=== PATIENT | female | born 1990 | race Caucasian/White ===

== ENCOUNTER → 2019-05-31 | Outpatient (CLI) | payer OTHER ==
--- NOTE | 2019-06-01 15:14 | RAD ---
EXAM: OBSTETRIC ULTRASOUND. HISTORY: anatomy survey. COMPARISON: None. FINDINGS: Sonographic evaluation of the uterus, fetus and maternal pelvis was performed. There is a single fetus in vertex presentation. heart rate is 169 bpm. Estimated gestational age based on measurements is 29 weeks 4 days. Biparietal diameter, head circumference, abdominal circumference and femur length are commensurate. Estimated weight is 1443 g. The placenta is posterior. There is no evidence of placenta previa. Amniotic fluid volume appears normal with amniotic fluid index 10.3 cm. The cervix is closed and measures 4.9 cm. Intracranial images demonstrate no hydrocephalus. Images of the kidneys reveal no hydronephrosis. The spine demonstrates no clear defects. The cord insertion appears normal. Nose/lip morphology appears normal. The heart is four-chamber on real-time scanning but not clearly demonstrated on these images. The extremities appear normal. The stomach and bladder are visualized. The maternal adnexa are obscured by positioning currently. IMPRESSION: 1. Single fetus in vertex presentation. heart rate 169 bpm. Estimated gestational age based on measurements 29 weeks 4 days. Electronically signed by: Sho Melo MD (06/01/2019 3:12 PM) [facility]
== END | disposition home or self-care (01) ==
LOC: US 15:26
PROVIDERS: ATTEND Obstetrics & Gynecology
DX: Z32.01 Encounter for pregnancy test, result positive (principal); Z3A.29 29 weeks gestation of pregnancy; Z87.59 Personal history of other complications of pregnancy, childbirth and the puerperium
CPT/HCPCS: 76805

== ENCOUNTER 2019-07-26 00:42 | Observation (INO) | payer OTHER ==
[2019-07-26] MEDS ORDERED: IV RINGERS,LACTATED 1000ML 1,000 ML IV PRN (01:00)
[2019-07-26 01:16] LABS: BILIRUBIN,URINE NEGATIVE (NEG); CLARITY,URINE CLOUDY; COLOR,URINE YELLOW; NITRITE,URINE NEGATIVE (NEG); PROTEIN,URINE NEGATIVE (NEG-TRACE); UROBILINOGEN,URINE 0.2 mg/dL (0.2 mg/dL)
[2019-07-26 01:19] LABS: BARBITURATES NEG (NEG); BENZODIAZEPINES NEG (NEG); CANNABINOIDS NEG (NEG); COCAINE NEG (NEG); METHADONE NEG (NEG); OPIATES NEG (NEG); PHENCYCLIDINE NEG (NEG)
[2019-07-26 01:21] LABS: SQUAMOUS EPITHELIAL CELL,UR MANY /LPF
[2019-07-26 01:22] LABS: BACTERIA,URINE MANY /HPF (0-FEW); RBC,URINE 0 /HPF (0-2)
[2019-07-26 01:23] LABS: AMORPHOUS SEDIMENT,UR PRESENT /HPF
[2019-07-26 01:24] LABS: AMPHETAMINE/METHAMPHETAMINE NEG (NEG)
== END 2019-07-26 02:10 | disposition home or self-care (01) ==
LOC: 3 SO LND 00:42
PROVIDERS: ADMIT Obstetrics & Gynecology; ATTEND Obstetrics & Gynecology
DX: O36.8130 Decreased fetal movements, third trimester, not applicable or unspecified (principal); Z3A.37 37 weeks gestation of pregnancy; Z98.891 History of uterine scar from previous surgery
CPT/HCPCS: 80307; 81001; 87086; G0378; G0379; 59025

== ENCOUNTER 2019-07-27 23:11 | Observation (INO) | payer OTHER ==
[2019-07-27 23:49] LABS: BILIRUBIN,URINE NEGATIVE (NEG); CLARITY,URINE CLEAR; COLOR,URINE YELLOW; NITRITE,URINE NEGATIVE (NEG); PH,URINE 6.5; PROTEIN,URINE NEGATIVE (NEG-TRACE); UROBILINOGEN,URINE 0.2 mg/dL (0.2 mg/dL)
[2019-07-28 00:19] LABS: BACTERIA,URINE MANY /HPF (0-FEW)
[2019-07-28 00:20] LABS: SQUAMOUS EPITHELIAL CELL,UR MOD /LPF
[2019-07-28] MEDS ORDERED: 0.9 % SODIUM CHLORIDE 10 ML DISP.SYRIN. IV PRN (01:30)
[2019-07-28] MEDS ORDERED: IV RINGERS,LACTATED 500ML 1,000 ML IV ONE (01:30)
[2019-07-28] MEDS ORDERED: TERBUTALINE 1 MG/ML VIAL. SQ PRN (01:30)
[2019-07-28] MEDS ORDERED: IV RINGERS,LACTATED 1000ML 1,000 ML IV SCH (01:30)
[2019-07-28 01:47] LABS: BASO # 0.1 x10^3/uL (0.0-0.2); BASO % 1 % (0-3); EOS # 0.1 x10^3/uL (0.0-0.7); EOS % 1 % (0-3); HEMOGLOBIN 11.3 g/dL (12.0-15.5); LYMPH # 2.6 x10^3/uL (1.0-4.8); LYMPH % 20 % (24-48); MEAN CORPUSCULAR HEMOGLOBIN 30 pg (25-35); MEAN CORPUSCULAR HGB CONC 33 g/dL (31-37); MEAN CORPUSCULAR VOLUME 91 fL (79-100); MONO # 0.8 x10^3/uL (0.0-1.1); MONO % 6 % (0-9); NEUT # 9.2 x10^3/uL (1.8-7.7); NEUT % 72 % (31-73); PLATELET COUNT 312 x10^3/uL (140-400); RED BLOOD COUNT 3.73 x10^6/uL (3.50-5.40); RED CELL DISTRIBUTION WIDTH 13.5 % (11.5-14.5); WHITE BLOOD COUNT 12.8 x10^3/uL (4.0-11.0)
[2019-07-28] MEDS ORDERED: fentaNYL PF VIAL 100 MCG/2 ML VIAL IV PRN (02:00)
[2019-07-28] MEDS ORDERED: hydrOXYzine 25 MG TABLET PO PRN (09:30)
== END 2019-07-28 12:20 | disposition home or self-care (01) ==
LOC: 3 SO LND 23:11
PROVIDERS: ADMIT Obstetrics & Gynecology; ATTEND Obstetrics & Gynecology
DX: Z34.83 Encounter for supervision of other normal pregnancy, third trimester (principal); Z3A.37 37 weeks gestation of pregnancy; Z98.891 History of uterine scar from previous surgery
CPT/HCPCS: 36415; 81001; 85025; 86592; 86850; 86900; 86901; 87086; 96374; G0378; G0379; J3010; J7120

== ENCOUNTER 2019-07-30 16:50 | Inpatient (IN) | payer OTHER ==
[~2019-07-30] VITALS: Ht 170.2 cm; Wt 85.7 kg
[2019-07-30] MEDS ORDERED: CITRIC ACID/SODIUM CITRATE 30 ML SOLUTION. PO ONE (17:30)
[2019-07-30] MEDS ORDERED: TERBUTALINE 1 MG/ML VIAL. SQ ONE (17:30)
[2019-07-30] MEDS ORDERED: IV RINGERS,LACTATED 1000ML 1,000 ML IV SCH (17:30)
[2019-07-30 17:38] LABS: HEMATOCRIT 33.1 % (36.0-47.0); RED BLOOD COUNT 3.68 x10^6/uL (3.50-5.40); RED CELL DISTRIBUTION WIDTH 13.8 % (11.5-14.5); WHITE BLOOD COUNT 11.1 x10^3/uL (4.0-11.0)
--- NOTE | 2019-07-30 18:57 | PDOC1 ---
OB - History Hx of Present Care: Good Care Ultrasounds: Normal mid trimester US Obstetrical Complications: None Medical Complications: None Past Family/Social History * Past Medical, Surgical, Family and Obstetric Histories reviewed from chart. Rubella: Immune RPR/VDRL: Negative GBS Status: Unknown HBsAG: Negative OB - Chief Complaint & HPI Date of Admission: Date of Admission: Jul 30, 2019 at 16:50 Chief Complaint/History : 3 Para: 2 EGA: 38 Reason for admission: active labor Indication for : desires repeat Admission Nurse Assessment Rev: Yes OB - Admission Exam Physical Exam Vitals: VS - Last 72 Hours, by Label Date Time Temp Pulse Resp B/P (MAP) Pulse Ox O2 Delivery O2 Flow Rate FiO2 07/30/19 17:33 87 143/85 HEENT: Normal Heart: Regular Rate Lungs: Clear Abdomen: Gravid, Non tender, Soft Extremities: Edema Reflexes: Normal Cervical Dilatation: 3cm Effacement: 75% Station: -3 Membranes: Intact Heart Rate: Normal Accelerations: Accelerations Present Decelerations: No decelerations Contractions on Admission: 6-10 Minutes Apart Intensity: Moderate Text A: 38 wks IUP Previous c/s Active labor P: Admit for repeat c/s. DIVINE KRISHNAMURTHY Jr, MD Jul 30, 2019 18:57
[2019-07-30] MEDS ORDERED: ONDANSETRON PF 4 MG/2 ML VIAL. IV PRN (19:00)
[2019-07-30] MEDS ORDERED: 0.9 % SODIUM CHLORIDE 10 ML DISP.SYRIN. IV PRN (19:00)
[2019-07-30] MEDS ORDERED: oxyCODONE/APAP 5/325 1 TAB TABLET PO PRN (19:00)
[2019-07-30] MEDS ORDERED: SIMETHICONE 80 MG TAB.CHEW PO PRN (19:00)
[2019-07-30] MEDS ORDERED: OXYTOCIN 30 UNIT/500 ML PREMIX 500 ML IV PRN (19:00)
[2019-07-30] MEDS ORDERED: MAG HYDROX/ALUMINUM HYD/SIMETH 30 ML ORAL.SUSP PO PRN (19:00)
[2019-07-30] MEDS ORDERED: DOCUSATE SODIUM 100 MG CAPSULE. PO PRN (19:00)
[2019-07-30] MEDS ORDERED: KETOROLAC 30 MG/ML VIAL. IV PRN (19:00)
[2019-07-30] MEDS ORDERED: ZOLPIDEM 5 MG TABLET. PO PRN (19:00)
[2019-07-30] MEDS ORDERED: diphenhydrAMINE ORAL ELIXIR 12.5 MG/5 ML ML PO PRN (19:00)
[2019-07-30] MEDS ORDERED: fentaNYL PF VIAL 100 MCG/2 ML VIAL ONE ×2 (20:10→20:12)
[2019-07-30] MEDS ORDERED: MORPHINE PF 10 MG/10 ML AMPUL. ONE (20:11)
[2019-07-30] MEDS ORDERED: OXYTOCIN 10 UNIT/ML VIAL. ONE ×2 (20:13)
[2019-07-30] MEDS ORDERED: ONDANSETRON PF 4 MG/2 ML VIAL. ONE (21:47)
[2019-07-30] MEDS ORDERED: METOCLOPRAMIDE HCL 10 MG/2 ML VIAL. ONE (21:47)
[2019-07-30] MEDS ORDERED: PHENYLEPHRINE in 0.9% NACL PF 1 MG/10 ML SYRINGE. IV ONE (21:47)
[2019-07-30] MEDS ORDERED: FAMOTIDINE 20 MG/2 ML VIAL ONE (21:47)
[2019-07-30] MEDS ORDERED: ceFAZolin 2GM PREMIX 2 GM/50 ML BAG IV ONE (22:00)
--- NOTE | 2019-07-30 22:06 | PDOC4 ---
OB Operative Note Date: Jul 30, 2019 PRE OP DIAGNOSIS: Previoujs C- section (active labor) POST OP DIAGNOSIS: Other (same) OPERATION PERFORMED: R [facility] Surgeon Dr. Uriostegui Anesthesia: Regional (Spinal) Blood Loss 600 ml Specimen placenta and OB Findings: Position (Vertex), Sex (Female), (8/9), Weight (8 Lb 2 oz) Complications none Additional Remarks pt. stable DIVINE URIOSTEGUI Jr, MD Jul 30, 2019 22:06
--- NOTE | 2019-07-30 22:50 | OP ---
DATE OF SURGERY: 07/30/2019 PREOPERATIVE DIAGNOSES: 1. A 38 weeks' intrauterine . 2. Previous section. 3. Active labor. POSTOPERATIVE DIAGNOSES: 1. A 38 weeks' intrauterine . 2. Previous section. 3. Active labor. PROCEDURE: Repeat low transverse section. SURGEON: Divine Uriostegui MD ANESTHESIA: Spinal. ESTIMATED BLOOD LOSS: 600 mL. COMPLICATIONS: None. FINDINGS: Viable female , Apgars 8 and 9, weight 8 pounds 2 ounces. Three-vessel cord placenta delivered manually intact. SUMMARY: A 28-year-old 3, para 2 at 38 weeks with a previous , presented in active labor. She was counseled on the risks, benefits and expectations of repeat section and voiced clear understanding to proceed. DESCRIPTION OF PROCEDURE: The patient was taken to surgery suite and placed in dorsal supine position. She was prepped with ChloraPrep and draped in sterile fashion. After adequate anesthesia, Pfannenstiel skin incision was made with a scalpel down to and through the fascia. The fascia was extended laterally using curved Ly scissors. The superior edge of the fascia was grasped with 2 Ary clamps and dissected free of the abdominal rectus muscle using blunt dissection along with Bovie cautery. The same process took place inferiorly. The abdominal rectus muscles were dissected bluntly at the midline. Peritoneum was grasped with 2 hemostats and entered sharply with Metzenbaum scissors. This incision was extended superiorly as well as inferiorly. The Charlie ring retractor was placed. A low transverse hysterotomy incision was made with scalpel down to the amniotic sac. The hysterotomy incision was extended laterally and superiorly digitally. Amniotomy was performed with Allis clamp, which elicited moderate amount of clear fluid. With the aid of fundal pressure, the 's head was delivered in a smooth atraumatic manner. With additional fundal pressure, the anterior shoulder was delivered followed by posterior shoulder and rest of female was delivered. was suctioned with a bulb syringe orally and nasally, umbilical cord was clamped twice and cut and viable female infant was handed to waiting nursing staff. Umbilical cord blood was then obtained. Three-vessel cord placenta was delivered manually intact. The uterus was then exteriorized and cleared of clot and debris with moist lap. Hysterotomy incision was reapproximated using #1 Vicryl suture in a running locked fashion. The uterus palpated firm. Fallopian tubes and ovaries appeared normal bilaterally. Posterior cul-de-sac was cleared of clot and debris with moist lap. The uterus was then returned to the abdomen. The pericolic gutters were cleared of clot and debris with a moist lap. Hysterotomy incision was reviewed and was hemostatic. The Charlie ring retractor was removed. Peritoneum was reapproximated using #1 Vicryl suture in running fashion. The abdominal rectus muscles were reapproximated using #1 Vicryl suture in an interrupted fashion. The fascia was reapproximated using Stratafix in a running fashion. The skin was reapproximated using 4-0 Vicryl suture in a subcuticular manner. The patient tolerated the procedure well and was taken to recovery room in stable condition. Sponge and needle count correct x 3. DIVINE URIOSTEGUI MD DR: CRYSTAL/lorri JOB#: [id number] / [id number]
[2019-07-31 01:53] VITALS: BP 100/64
[2019-07-31 04:00] VITALS: BP 114/56
[2019-07-31 05:30] VITALS: BP 106/51
[2019-07-31] MEDS: IV RINGERS,LACTATED 1000ML 1,000 ML IV SCH (05:45)
[2019-07-31 06:20] LABS: BASO % 0 % (0-3); EOS % 0 % (0-3); HEMOGLOBIN 9.4 g/dL (12.0-15.5); LYMPH # 2.4 x10^3/uL (1.0-4.8); LYMPH % 21 % (24-48); MEAN CORPUSCULAR HEMOGLOBIN 30 pg (25-35); MEAN CORPUSCULAR HGB CONC 32 g/dL (31-37); MEAN CORPUSCULAR VOLUME 91 fL (79-100); MONO # 0.7 x10^3/uL (0.0-1.1); MONO % 6 % (0-9); NEUT # 8.3 x10^3/uL (1.8-7.7); NEUT % 73 % (31-73); PLATELET COUNT 240 x10^3/uL (140-400); RED BLOOD COUNT 3.17 x10^6/uL (3.50-5.40); RED CELL DISTRIBUTION WIDTH 13.6 % (11.5-14.5); WHITE BLOOD COUNT 11.4 x10^3/uL (4.0-11.0)
[2019-07-31] MEDS: FERROUS SULFATE 325 MG TABLET. PO SCH ×2 (08:04→19:58)
[2019-07-31] MEDS: IBUPROFEN 400 MG TABLET. PO PRN ×2 (08:04→19:58)
--- NOTE | 2019-07-31 08:32 | PDOC ---
OB Progress Note Date of Service 07/31/19 Time of Evaluation 0830 Notes Pt. feeling well. No complaints. Pain controlled. Lab Laboratory Tests Test 07/30/19 17:30 07/31/19 04:40 White Blood Count 11.1 x10^3/uL (4.0-11.0) 11.4 x10^3/uL (4.0-11.0) Red Blood Count 3.68 x10^6/uL (3.50-5.40) 3.17 x10^6/uL (3.50-5.40) Hemoglobin 11.0 g/dL (12.0-15.5) 9.4 g/dL (12.0-15.5) Hematocrit 33.1 % (36.0-47.0) 29.0 % (36.0-47.0) Mean Corpuscular Volume 90 fL (79-100) 91 fL (79-100) Mean Corpuscular Hemoglobin 30 pg (25-35) 30 pg (25-35) Mean Corpuscular Hemoglobin Concent 33 g/dL (31-37) 32 g/dL (31-37) Red Cell Distribution Width 13.8 % (11.5-14.5) 13.6 % (11.5-14.5) Platelet Count 313 x10^3/uL (140-400) 240 x10^3/uL (140-400) Treponema pallidum Antibody Nonreactive (Nonreactive) Neutrophils (%) (Auto) 73 % (31-73) Lymphocytes (%) (Auto) 21 % (24-48) Monocytes (%) (Auto) 6 % (0-9) Eosinophils (%) (Auto) 0 % (0-3) Basophils (%) (Auto) 0 % (0-3) Neutrophils # (Auto) 8.3 x10^3/uL (1.8-7.7) Lymphocytes # (Auto) 2.4 x10^3/uL (1.0-4.8) Monocytes # (Auto) 0.7 x10^3/uL (0.0-1.1) Eosinophils # (Auto) 0.0 x10^3/uL (0.0-0.7) Basophils # (Auto) 0.0 x10^3/uL (0.0-0.2) Laboratory Tests Test 07/30/19 17:30 07/31/19 04:40 White Blood Count 11.1 x10^3/uL (4.0-11.0) 11.4 x10^3/uL (4.0-11.0) Red Blood Count 3.68 x10^6/uL (3.50-5.40) 3.17 x10^6/uL (3.50-5.40) Hemoglobin 11.0 g/dL (12.0-15.5) 9.4 g/dL (12.0-15.5) Hematocrit 33.1 % (36.0-47.0) 29.0 % (36.0-47.0) Mean Corpuscular Volume 90 fL (79-100) 91 fL (79-100) Mean Corpuscular Hemoglobin 30 pg (25-35) 30 pg (25-35) Mean Corpuscular Hemoglobin Concent 33 g/dL (31-37) 32 g/dL (31-37) Red Cell Distribution Width 13.8 % (11.5-14.5) 13.6 % (11.5-14.5) Platelet Count 313 x10^3/uL (140-400) 240 x10^3/uL (140-400) Treponema pallidum Antibody Nonreactive (Nonreactive) Neutrophils (%) (Auto) 73 % (31-73) Lymphocytes (%) (Auto) 21 % (24-48) Monocytes (%) (Auto) 6 % (0-9) Eosinophils (%) (Auto) 0 % (0-3) Basophils (%) (Auto) 0 % (0-3) Neutrophils # (Auto) 8.3 x10^3/uL (1.8-7.7) Lymphocytes # (Auto) 2.4 x10^3/uL (1.0-4.8) Monocytes # (Auto) 0.7 x10^3/uL (0.0-1.1) Eosinophils # (Auto) 0.0 x10^3/uL (0.0-0.7) Basophils # (Auto) 0.0 x10^3/uL (0.0-0.2) Medications Current Medications Ringer's Solution 1,000 ml @ 1,000 mls/hr Q1H IV Last administered on 07/30/19at 19:21; Start 07/30/19 at 17:30; Stop 07/30/19 at 18:29; Status DC Ringer's Solution 1,000 ml @ 125 mls/hr Q8H IV Last administered on 07/31/19at 05:45; Start 07/30/19 at 18:00 Cefazolin Sodium/ Dextrose 50 ml @ 100 mls/hr 1X ONCE IV ; Start 07/30/19 at 17:30; Stop 07/30/19 at 17:59; Status DC Citric Acid/ Sodium Citrate (Bicitra) 30 ml 1X ONCE PO ; Start 07/30/19 at 17:30; Stop 07/30/19 at 17:31; Status DC Terbutaline Sulfate (Brethine) 0.25 mg 1X ONCE SQ Last administered on 07/30/19at 17:33; Start 07/30/19 at 17:30; Stop 07/30/19 at 17:31; Status DC Sodium Chloride (Normal Saline Flush) 3 ml QSHIFT PRN IV AFTER MEDS AND BLOOD DRAWS; Start 07/30/19 at 19:00 Oxytocin/Sodium Chloride 500 ml @ 125 mls/hr CONT PRN IV EXCESSIVE POST- BLEEDING; Start 07/30/19 at 19:00; Stop 07/31/19 at 02:59; Status DC Ibuprofen (Motrin) 800 mg PRN Q4HRS PRN PO INFLAMMATION Last administered on 07/31/19at 08:04; Start 07/30/19 at 19:00 Ondansetron HCl (Zofran) 4 mg PRN Q6HRS PRN IV NAUSEA/VOMITING; Start 07/30/19 at 19:00 Docusate Sodium (Colace) 100 mg PRN BID PRN PO CONSTIPATION Last administered on 07/31/19at 08:04; Start 07/30/19 at 19:00 Al Hydroxide/Mg Hydroxide (Mylanta Plus Xs) 30 ml PRN Q4HRS PRN PO HEARTBURN / GAS; Start 07/30/19 at 19:00 Simethicone (Gas-X) 80 mg PRN AFTMEALHC PRN PO GAS / BLOATING; Start 07/30/19 at 19:00 Diphenhydramine HCl (Benadryl Oral Elixir) 12.5 mg PRN Q6HRS PRN PO ITCHING; Start 07/30/19 at 19:00 Ferrous Sulfate (Feosol) 325 mg BIDWMEALS PO Last administered on 07/31/19at 08:04; Start 07/31/19 at 08:00 Zolpidem Tartrate (Ambien) 5 mg PRN QHS PRN PO INSOMNIA, MAY REPEAT X1; Start 07/30/19 at 19:00 Oxycodone/ Acetaminophen (Percocet 5/325) 2 tab PRN Q4HRS PRN PO MODERATE PAIN, SEVERE PAIN; Start 07/30/19 at 19:00 Ketorolac Tromethamine (Toradol 30mg Vial) 30 mg PRN Q6HRS PRN IV PAIN Last administered on 07/31/19at 00:42; Start 07/30/19 at 19:00; Stop 08/04/19 at 18:59 Fentanyl Citrate (Fentanyl 2ml Vial) 100 mcg STK-MED ONCE .ROUTE ; Start 07/30/19 at 20:10; Stop 07/30/19 at 20:11; Status DC Morphine Sulfate (Morphine Preservative Free) 10 mg STK-MED ONCE .ROUTE ; Start 07/30/19 at 20:11; Stop 07/30/19 at 20:11; Status DC Fentanyl Citrate (Fentanyl 2ml Vial) 100 mcg STK-MED ONCE .ROUTE ; Start 07/30/19 at 20:12; Stop 07/30/19 at 20:12; Status DC Oxytocin (Pitocin) 10 unit STK-MED ONCE .ROUTE ; Start 07/30/19 at 20:13; Stop 07/30/19 at 20:13; Status DC Oxytocin (Pitocin) 10 unit STK-MED ONCE .ROUTE ; Start 07/30/19 at 20:13; Stop 07/30/19 at 20:13; Status DC Phenylephrine HCl (PHENYLEPHRINE in 0.9% NACL PF) 1 mg STK-MED ONCE IV ; Start 07/30/19 at 21:47; Stop 07/30/19 at 21:47; Status DC Famotidine (Pepcid Vial) 20 mg STK-MED ONCE .ROUTE ; Start 07/30/19 at 21:47; Stop 07/30/19 at 21:47; Status DC Metoclopramide HCl (Reglan Vial) 10 mg STK-MED ONCE .ROUTE ; Start 07/30/19 at 21:47; Stop 07/30/19 at 21:47; Status DC Ondansetron HCl (Zofran) 4 mg STK-MED ONCE .ROUTE ; Start 07/30/19 at 21:47; Stop 07/30/19 at 21:47; Status DC Exam Abd:soft, mild tenderness, fundus firm Bandage in place and dry. Assessment POD#1 s/p repeat c/s Plan of Care: Continue current Tx, Mgmt DIVINE KRISHNAMURTHY Jr, MD Jul 31, 2019 08:32
[2019-07-31 16:20] VITALS: BP 103/68
[2019-07-31 20:38] VITALS: BP 109/73
[2019-08-01] MEDS: IV RINGERS,LACTATED 1000ML 1,000 ML IV SCH ×2 (02:00→19:00)
[2019-08-01 05:11] VITALS: BP 109/70
[2019-08-01 07:54] VITALS: BP 114/78
[2019-08-01] MEDS: FERROUS SULFATE 325 MG TABLET. PO SCH ×2 (08:53→17:25)
[2019-08-01] MEDS: IBUPROFEN 400 MG TABLET. PO PRN ×3 (08:53→22:44)
--- NOTE | 2019-08-01 09:05 | PDOC ---
PROGRESS NOTES Subjective Subjective Pt with good pain control. Ivana PO. Voiding. Minimal lochia. Objective Objective Vital Signs Date Time Temp Pulse Resp B/P (MAP) Pulse Ox O2 Delivery O2 Flow Rate FiO2 08/01/19 07:54 98.7 84 16 114/78 (90) 97 Room Air 98.7 Intake and Output 08/01/19 07:00 Intake Total 550 ml Output Total 800 ml Balance -250 ml Intake Oral 550 ml Output Urine Total 800 ml # Voids 3 Physical Exam Physical Exam FFNT below umb No C/C/E Assessment Assessment A/P 28y POD #2 s/p RLTCS 1.) PO doing well 2.) Hgb 11.0 -> 9.4, on Fe BID 3.) Elevated BP only one on admission, nml since 4.) Cont PO care Comment Review of Relevant I have reviewed the following items marilee (where applicable) has been applied. Labs Laboratory Tests Test 07/30/19 17:30 07/31/19 04:40 White Blood Count 11.1 x10^3/uL (4.0-11.0) 11.4 x10^3/uL (4.0-11.0) Red Blood Count 3.68 x10^6/uL (3.50-5.40) 3.17 x10^6/uL (3.50-5.40) Hemoglobin 11.0 g/dL (12.0-15.5) 9.4 g/dL (12.0-15.5) Hematocrit 33.1 % (36.0-47.0) 29.0 % (36.0-47.0) Mean Corpuscular Volume 90 fL (79-100) 91 fL (79-100) Mean Corpuscular Hemoglobin 30 pg (25-35) 30 pg (25-35) Mean Corpuscular Hemoglobin Concent 33 g/dL (31-37) 32 g/dL (31-37) Red Cell Distribution Width 13.8 % (11.5-14.5) 13.6 % (11.5-14.5) Platelet Count 313 x10^3/uL (140-400) 240 x10^3/uL (140-400) Treponema pallidum Antibody Nonreactive (Nonreactive) Neutrophils (%) (Auto) 73 % (31-73) Lymphocytes (%) (Auto) 21 % (24-48) Monocytes (%) (Auto) 6 % (0-9) Eosinophils (%) (Auto) 0 % (0-3) Basophils (%) (Auto) 0 % (0-3) Neutrophils # (Auto) 8.3 x10^3/uL (1.8-7.7) Lymphocytes # (Auto) 2.4 x10^3/uL (1.0-4.8) Monocytes # (Auto) 0.7 x10^3/uL (0.0-1.1) Eosinophils # (Auto) 0.0 x10^3/uL (0.0-0.7) Basophils # (Auto) 0.0 x10^3/uL (0.0-0.2) Medications Current Medications Ringer's Solution 1,000 ml @ 1,000 mls/hr Q1H IV Last administered on 07/30/19at 19:21; Start 07/30/19 at 17:30; Stop 07/30/19 at 18:29; Status DC Ringer's Solution 1,000 ml @ 125 mls/hr Q8H IV Last administered on 07/31/19at 05:45; Start 07/30/19 at 18:00 Cefazolin Sodium/ Dextrose 50 ml @ 100 mls/hr 1X ONCE IV ; Start 07/30/19 at 17:30; Stop 07/30/19 at 17:59; Status DC Citric Acid/ Sodium Citrate (Bicitra) 30 ml 1X ONCE PO ; Start 07/30/19 at 17 :30; Stop 07/30/19 at 17:31; Status DC Terbutaline Sulfate (Brethine) 0.25 mg 1X ONCE SQ Last administered on 07/30/19at 17:33; Start 07/30/19 at 17:30; Stop 07/30/19 at 17:31; Status DC Sodium Chloride (Normal Saline Flush) 3 ml QSHIFT PRN IV AFTER MEDS AND BLOOD DRAWS; Start 07/30/19 at 19:00 Oxytocin/Sodium Chloride 500 ml @ 125 mls/hr CONT PRN IV EXCESSIVE POST- BLEEDING; Start 07/30/19 at 19:00; Stop 07/31/19 at 02:59; Status DC Ibuprofen (Motrin) 800 mg PRN Q4HRS PRN PO INFLAMMATION Last administered on 08/01/19at 08:53; Start 07/30/19 at 19:00 Ondansetron HCl (Zofran) 4 mg PRN Q6HRS PRN IV NAUSEA/VOMITING; Start 07/30/19 at 19:00 Docusate Sodium (Colace) 100 mg PRN BID PRN PO CONSTIPATION Last administered on 07/31/19at 08:04; Start 07/30/19 at 19:00 Al Hydroxide/Mg Hydroxide (Mylanta Plus Xs) 30 ml PRN Q4HRS PRN PO HEARTBURN / GAS; Start 07/30/19 at 19:00 Simethicone (Gas-X) 80 mg PRN AFTMEALHC PRN PO GAS / BLOATING; Start 07/30/19 at 19:00 Diphenhydramine HCl (Benadryl Oral Elixir) 12.5 mg PRN Q6HRS PRN PO ITCHING; Start 07/30/19 at 19:00 Ferrous Sulfate (Feosol) 325 mg BIDWMEALS PO Last administered on 08/01/19at 08:53; Start 07/31/19 at 08:00 Zolpidem Tartrate (Ambien) 5 mg PRN QHS PRN PO INSOMNIA, MAY REPEAT X1; Start 07/30/19 at 19:00 Oxycodone/ Acetaminophen (Percocet 5/325) 2 tab PRN Q4HRS PRN PO MODERATE PAIN, SEVERE PAIN; Start 07/30/19 at 19:00 Ketorolac Tromethamine (Toradol 30mg Vial) 30 mg PRN Q6HRS PRN IV PAIN Last administered on 07/31/19at 00:42; Start 07/30/19 at 19:00; Stop 08/04/19 at 18:59 Fentanyl Citrate (Fentanyl 2ml Vial) 100 mcg STK-MED ONCE .ROUTE ; Start at 20:10; Stop 07/30/19 at 20:11; Status DC Morphine Sulfate (Morphine Preservative Free) 10 mg STK-MED ONCE .ROUTE ; Start 07/30/19 at 20:11; Stop 07/30/19 at 20:11; Status DC Fentanyl Citrate (Fentanyl 2ml Vial) 100 mcg STK-MED ONCE .ROUTE ; Start 07/30/19 at 20:12; Stop 07/30/19 at 20:12; Status DC Oxytocin (Pitocin) 10 unit STK-MED ONCE .ROUTE ; Start 07/30/19 at 20:13; Stop 07/30/19 at 20:13; Status DC Oxytocin (Pitocin) 10 unit STK-MED ONCE .ROUTE ; Start 07/30/19 at 20:13; Stop 07/30/19 at 20:13; Status DC Phenylephrine HCl (PHENYLEPHRINE in 0.9% NACL PF) 1 mg STK-MED ONCE IV ; Start 07/30/19 at 21:47; Stop 07/30/19 at 21:47; Status DC Famotidine (Pepcid Vial) 20 mg STK-MED ONCE .ROUTE ; Start 07/30/19 at 21:47; Stop 07/30/19 at 21:47; Status DC Metoclopramide HCl (Reglan Vial) 10 mg STK-MED ONCE .ROUTE ; Start 07/30/19 at 21:47; Stop 07/30/19 at 21:47; Status DC Ondansetron HCl (Zofran) 4 mg STK-MED ONCE .ROUTE ; Start 07/30/19 at 21:47; Stop 07/30/19 at 21:47; Status DC Cefazolin Sodium/ Dextrose (Ancef 2gm Premix) 2 gm STK-MED ONCE IV ; Start 07/30/19 at 22:00; Stop 07/31/19 at 12:18; Status DC Vitals/I & O Vital Sign - Last 24 Hours 07/31/19 07/31/19 07/31/19 08/01/19 16:20 20:38 20:56 05:11 Temp 98.0 97.9 97.7 98.0 97.9 97.7 Pulse 78 83 Resp 20 18 18 B/P (MAP) 103/68 (80) 109/73 (85) 109/70 (83) Pulse Ox 97 97 95 O2 Delivery Room Air Room Air Room Air 08/01/19 07:54 Temp 98.7 98.7 Pulse 84 Resp 16 B/P (MAP) 114/78 (90) Pulse Ox 97 O2 Delivery Room Air Intake and Output 07/31/19 07/31/19 08/01/19 15:00 23:00 07:00 Intake Total 550 ml Output Total 800 ml Balance -800 ml 550 ml ALFRED DIAZ MD Aug 01, 2019 09:05
[2019-08-01 15:56] VITALS: BP 114/74
[2019-08-01 20:35] VITALS: BP 129/74
[2019-08-02] MEDS: IV RINGERS,LACTATED 1000ML 1,000 ML IV SCH (00:09)
[2019-08-02] MEDS: IBUPROFEN 400 MG TABLET. PO PRN ×2 (05:08→12:25)
[2019-08-02 05:11] VITALS: BP 105/63
--- NOTE | 2019-08-02 11:10 | PDOC3 ---
OB DISCHARGE SUMMARY DATE OF ADMISSION: 07/30/19 DATE OF DISCHARGE: 08/02/19 REASON FOR ADMISSION: section INTRAPARTUM PROCEDURES: : Low Cerv Trans DISCHARGE DIAGNOSIS: Term Delivered DISCHARGE INFORMATION: Activity (ad giovanny), Diet (regular), Instructions (pelvic rest x 6 wks, no driving x 2 wks, no lifting> 20 lbs. x 6 wks) HOSPITAL COURSE Term gestation delivered section without complications. DIVINE KRISHNAMURTHY Jr, MD Aug 02, 2019 11:10
[2019-08-02] MEDS ORDERED: DOCU-153 PO (11:15)
[2019-08-02] MEDS ORDERED: OXYC1TAB15 PO (11:15)
[2019-08-02] MEDS ORDERED: IBUP-1027 PO (11:15)
--- NOTE | 2019-08-02 11:16 | DISCH ---
DISCHARGE INSTRUCTIONS Condition on Discharge Condition on Discharge: Stable Activity After Discharge Activity Instructions for Disc: Activity as tolerated Lifting Instructions after Dis: No heavy lifting Driving Instructions after Dis: No driving for 2 weeks Diet after Discharge Diet after Discharge: Regular Contacting the DRJohann after DC Call your doctor for: Concerns you may have Follow-Up Follow up with: Dr. Uriostegui in 2 wks DIVINE URIOSTEGUI Jr, MD Aug 02, 2019 11:16
[2019-08-02] MEDS: FERROUS SULFATE 325 MG TABLET. PO SCH (12:25)
[2019-08-02] MEDS ORDERED: DIPHTH,PERTUSS(ACELL),TET TOX 0.5 ML DISP.SYRIN. VAX IM ONE (13:00)
[2019-08-02] MEDS ORDERED: FLU VAX QS 2019-20 (36MOS+)/PF 0.5 ML SYRINGE. VAX IM ONE (13:00)
[2019-08-02] MEDS ORDERED: MEASLES, MUMPS & RUBELLA VACC 0.5 ML VIAL. VAX SQ ONE (13:00)
[2019-08-02 14:10] VITALS: BP 112/69
== END 2019-08-02 15:34 | disposition home or self-care (01) | DRG 788 ==
LOC: 3 SO LND 16:50 → 3 NORTH 07-31 02:15
PROVIDERS: ADMIT Obstetrics & Gynecology; ATTEND Obstetrics & Gynecology
PROC: 10D00Z1 Extraction of Products of Conception, Low, Open Approach (ICD-10-PCS; principal; 2019-08-02)
DX: O34.211 Maternal care for low transverse scar from previous cesarean delivery (principal); Z37.0 Single live birth; Z3A.38 38 weeks gestation of pregnancy
CPT/HCPCS: 36415; 85025; 85027; 86592; 86850; 86900; 86901; 90471; 90686; 90707; 90715; J0696; J1885; J2274; J2370; J2405; J2590; J2765; J3010; J3105; J3490; J7120; G0378